=== PATIENT | female | born 1945 | race Caucasian/White ===

== ENCOUNTER 2016-11-12 06:23 | Day surgery (SDC) | payer MEDICARE, OTHER ==
[2016-11-08 11:20] LABS: BASOPHILS 0.5 %; BASOPHILS ABSOLUTE 0.03 10/3/uL (0.0-0.16); EOSINOPHILS ABSOLUTE 0.25 10/3/uL (0.0-0.53); HEMATOCRIT 40.5 % (36.0-48.0); HEMOGLOBIN 13.9 g/dL (12.0-16.0); IMMATURE GRANULOCYTES 0.2 %; IMMATURE GRANULOCYTES ABSOLUTE 0.01 10/3/uL (0.0-0.11); LYMPHOCYTES 22.7 %; MEAN CORPUS HGB CONC 34.3 g/dL (32.0-36.0); MEAN CORPUSCULAR HEMOGLOB 34.3 pg (26.0-34.0); MONOCYTES 9.2 %; MONOCYTES ABSOLUTE 0.57 10/3/uL (0.21-1.20); NEUTROPHILS 63.4 %; NEUTROPHILS ABSOLUTE 3.92 10/3/uL (2.02-8.40); PLATELET COUNT 211 10/3/uL (150-400); RBC DISTRIBUTION WIDTH 13.3 % (12.0-16.0); RED CELL COUNT 4.05 10/6/uL (4.0-5.6); WHITE BLOOD CELLS 6.2 10/3/uL (4.5-10.5)
[2016-11-08 11:21] LABS: MANUAL DIFF NO %
[2016-11-08 11:39] LABS: A/G RATIO 1.1 (0.7-1.9); ALBUMIN 3.8 G/DL (3.5-5.0); ALKALINE PHOSPHATASE 91 U/L (45-117); BUN (BLOOD UREA NITROGEN) 25 MG/DL (6-23); CALCIUM, SERUM 9.1 MG/DL (8.5-10.4); CHLORIDE, SERUM 108 MMOL/L (96-112); CO2 (CARBON DIOXIDE) 30 MMOL/L (24-34); GFR AFRICAN AMERICAN 48 ML/MIN (>=60); GFR NON AFRICAN AMERICAN 42 ML/MIN (>=60); GLOBULIN 3.6 G/DL (2.5-4.1); GLUCOSE, SERUM 154 MG/DL (60-99); SGOT(AST) 16 U/L (5-40); SGPT(ALT) 36 U/L (5-65); SODIUM, SERUM 145 MMOL/L (135-148); TOTAL BILIRUBIN 0.4 MG/DL (0-1.2); TOTAL PROTEIN 7.4 G/DL (6.0-8.5)
--- NOTE | ~2016-11-12 | OP ---
Record Of Operation [facility] [address] [place]. [address] NAME: RADHA ANDERS : 47 STATUS : REG [facility] [place] PAT#: [id number] AGE: 71 ADM/REG DATE : 11/12/16 MR#: [id number] REPORT SERV DATE: 11/12/16 DICTATED BY: CRYS FISHER III DATE: 11/12/16 REPORT STATUS : Draft TRANSCRIBED BY: MODAlok DATE: 11/12/16 DATE OF PROCEDURE: 11/12/2016 PREOPERATIVE DIAGNOSIS: Malignant melanoma of left calf. POSTOPERATIVE DIAGNOSIS: Malignant melanoma of left calf. PROCEDURE: Wide local resection of malignant melanoma from left calf. SURGEON: Crys Fisher M.D. ANESTHESIA: General with intubation. COMPLICATIONS: None. ESTIMATED BLOOD LOSS: Less than 5 mL. SPECIMENS: Melanoma from left calf. DRAINS: None. LAP AND SPONGE COUNT: Correct x3. BRIEF HISTORY: This 71-year-old female, presented with a biopsy-proven malignant melanoma of the left calf. Biopsy showed this to be a 0.47 mm thickness melanoma. It was felt that wide local resection of this malignancy was indicated. This procedure, the risks, benefits, and alternatives, including not limited to the risk for bleeding, infection, pain, swelling, scarring, deformity to the area, seroma formation, hematoma formation, wound failure or wound dehiscence, risk which would be increased because of her diabetes, nerve injury, paresthesias, pain, numbness, neuralgia or neuroma of the involved extremity, nerve injuries, muscle weakness, or paralysis to the extremity and unforeseen complications including deep venous thrombosis, pulmonary embolus, myocardial infarction, stroke, pneumonia, and , were explained to the patient prior to the surgery. Her questions were answered. She understood the risks and agreed to the surgery as planned. PROCEDURE IN DETAIL: After being properly identified and after discussing risks of surgery with her again in the preoperative area, and after identifying the lesion with her in the preoperative area, the patient was taken to the operating room and placed in the supine position on the operating room table. General anesthesia was administered. She was intubated without difficulty. The left leg was placed in a frog-legged position and then prepped and draped sterilely in the usual fashion. After an appropriate "time-out" per JCAHO standards, an elliptical shaped vertically oriented incision was made and centered around the melanoma. The incision was made so as to have at least a 2 cm margin around the entire periphery of the lesion. The incision was continued down to the fascia. The entire block of tissue consisting of skin, subcutaneous tissue, and fascia was then resected. The specimen was oriented with sutures. Again, a 2 cm margin was obtained around the lesion. Record Of Operation [facility] [id number] [place]. [address] NAME: RADHA ANDERS : 47 STATUS : REG [facility] [place] PAT#: [id number] AGE: 71 ADM/REG DATE : 11/12/16 MR#: [id number] REPORT SERV DATE: 11/12/16 DICTATED BY: CRYS FISHER III DATE: 11/12/16 REPORT STATUS : Draft TRANSCRIBED BY: ANGELICA DATE: 11/12/16 Using sharp dissection, the skin and subcutaneous tissue around the entire periphery of the defect was mobilized as far as possible to allow for closure. Hemostasis was assured. The subcutaneous tissue was closed with interrupted 3-0 Vicryl sutures. The skin was closed with interrupted 3-0 Prolene sutures. The skin came together nicely with minimal tension. The incision was injected with 0.5% Marcaine. Dressings were applied. Anesthesia was reversed and the patient was taken to the Recovery Room in stable condition. She tolerated the procedure well. Her family was informed of the results of surgery. The patient will be discharged when stable and comfortable. Her family was advised that she should keep the wound clean and dry for 48 hours and that she should not drive for two to three days after surgery or use narcotics and that she should resume her usual medications and that she should monitor her glucose carefully for the next two to three days. She was asked to return in two weeks for followup or sooner if any fever, chills, wound drainage, or other problems prior to that time. She was given a prescription for Percocet 7.5 one t.i.d., #12, as needed for pain which she was advised not to use while driving. MARISA/ANGELICA Crys Fisher III, M.D. / [id number] CC: Opal Andrews III
--- NOTE | ~2016-11-12 | PREOPHP ---
PreOp History and Physical [facility] [address] [place]. [address] NAME: RADHA ANDERS : 47 [place] : [place] [facility] [place] PAT#: [id number] AGE: 71 ADM/REG DATE : MR#: [id number] REPORT SERV DATE: 11/11/16 DICTATED BY: CRYS FISHER III DATE: 11/02/16 REPORT STATUS : Draft TRANSCRIBED BY: MODAlok DATE: 11/02/16 HISTORY OF PRESENT ILLNESS: This 71-year-old female comes to the operating room for wide local resection of a malignant melanoma of the left calf. 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 It was noted at that time she had a lesion of concern on the left calf. The patient states this lesion had been present for a long time and she has never noticed any change. It was biopsied and found to be a 0.45 mm in thickness malignant melanoma. She comes to the operating room now for a wide local resection of the melanoma. MEDICATIONS: Metformin, Tradjenta, insulin, Avalide, Lipitor, Lyrica, levothyroxine, Lexapro, calcium, Benadryl, Flonase, hydrocodone, Claritin. PAST MEDICAL HISTORY: Includes diabetes, sleep apnea, obesity, hyperlipidemia, diabetic neuropathy, and hypertension. ALLERGIES: SULFA AND PNEUMOVAX. FAMILY HISTORY: Unremarkable. SOCIAL HISTORY: The patient has a history of alcohol use. She has no history of tobacco use. REVIEW OF SYSTEMS: The patient complains of history of weight gain and back pain and depression. A 14-point review of systems was otherwise unremarkable. OBJECTIVE PHYSICAL EXAMINATION: GENERAL: A very obese female, in no acute distress. She is somewhat dyspneic. She is alert and oriented x3. VITAL SIGNS: Blood pressure 142/84, pulse 80, and temperature 97.6. HEENT: Unremarkable. Cranial nerves II through XII are normal. NECK: Unremarkable with no adenopathy. LUNGS: Clear. CARDIAC: Normal. ABDOMEN: Soft and nontender. LOWER EXTREMITIES: Remarkable for a healing incision over the left calf. This is over the posterior aspect of the midcalf. : The left and right groins are normal with no adenopathy. LABORATORY: Biopsy of this lesion removed from the left calf shows it to be a 0.47 mm thickness malignant melanoma, superficial spreading, level 2. ASSESSMENT: 71-year-old female with; 1. Biopsy-proven thin malignant melanoma of the left calf. 2. Obesity. 3. Hyperlipidemia. 4. Hypertension. 5. Diabetic neuropathy. PreOp History and Physical [address] [address] NAME: RADHA ANDERS : 47 STATUS : [place] [facility] [place] PAT#: [id number] AGE: 71 ADM/REG DATE : MR#: [id number] REPORT SERV DATE: 11/11/16 DICTATED BY: CRYS FISHER III DATE: 11/02/16 REPORT STATUS : Draft TRANSCRIBED BY: MODAlok DATE: 11/02/16 6. Diabetes mellitus. 7. Obstructive sleep apnea. PLAN: The patient comes to the operating room now for wide local resection of this malignant melanoma of the left calf. This procedure, the risks, benefits, and alternatives, including but not limited to the risk for bleeding, infection, pain, swelling, scarring, deformity to the area, seroma formation, hematoma formation, nerve injury, chronic paresthesia, pain, numbness, neuralgia or neuroma of the involved extremity, nerve injury with muscle weakness or paralysis to the involved extremity, wound failure, wound dehiscence, and unforeseen complications including deep venous thrombosis, pulmonary embolus, myocardial infarction, stroke, pneumonia, and , have been explained to the patient prior to surgery. The expected length of recovery has been explained. The patient's questions have been answered. She understands the risks and agrees with the surgery as planned. MARISA/ANGELICA Crys Fisher III, M.D. / [id number] CC: Monica Fletcher PA-C
[~2016-11-12 06:23] MED LIST: AVALIDE1 TA1 PO; BEN25 PO; CORICIDI2 OR; COSAMIN DS1 TAB PO; GLUCOPHAGE1000 MG PO; GLUCPH PO; INSNOVR SC; LANTUS SC; LEVOTHROID125 MCG PO; LEXAPRO20 PO; LIPITOR20 PO; LYRICA150 MG PO; MOBIC15 MG PO; MULTI-VIT HP PO; NEUR300 PO; NOVOPEN SC; OS500+D PO; PRESERVISION A1 EACH PO; TRADJENTA5 MG PO; VITAMIN D31000 UNIT PO
== END 2016-11-12 23:59 | disposition home or self-care (01) ==
LOC: PRET 06:23
PROVIDERS: Surgery
PROC: 0YB Anatomical Regions, Lower Extremities, Excision (ICD-10-PCS; principal; 2016-11-12 07:45)
DX: C43.72 Malignant melanoma of left lower limb, including hip (principal); E78.5 Hyperlipidemia, unspecified; E11.40 Type 2 diabetes mellitus with diabetic neuropathy, unspecified; I10 Essential (primary) hypertension; G47.33 Obstructive sleep apnea (adult) (pediatric); E66.01 Morbid (severe) obesity due to excess calories; Z88.2 Allergy status to sulfonamides; Z88.5 Allergy status to narcotic agent; Z99.89 Dependence on other enabling machines and devices; Z79.4 Long term (current) use of insulin; Z68.36 Body mass index [BMI] 36.0-36.9, adult; Z98.890 Other specified postprocedural states
CPT/HCPCS: 71020; 80053; 82962; 85025; 88305; 93005; A9270-GY; J0690; J1170; J2250; J2405; J3010